=== PATIENT | female | born 1985 | race African-American/Black ===

== ENCOUNTER 2020-04-17 01:31 | Outpatient (CLI) | payer OTHER ==
[~2020-04-17] VITALS: Ht 160 cm; Wt 101.2 kg
[2020-04-17] MEDS ORDERED: PRENTAB9 PO (01:43)
[2020-04-17 01:49] VITALS: BP 121/65
[2020-04-17 02:44] VITALS: BP 108/59
--- NOTE | 2020-04-17 04:37 | HPEPDOC ---
Obstetrical History & Physical General Date of Admission History of Present Illness 04/17/20 0400 am 34 yo CONTRACTIONS Q5-9 MINUTES MODERATE NO LOF OR BLEEDING Chief Complaint: Contractions, term Information Provided By: Patient Age: 34 : 2 Term: 1 Livin Care Care: Good Care Dating Final EDC: Apr 16, 2020 Final EDC by: LMP, 1st trimester (US) LMP: Jul 11, 2019 Weeks + Days: 8 EGA at Admission: 40.1 Past Medical History Past Obstetrical History : Past Obstetrical History: Multigravida Type of Delivery: Spontaneous Vaginal Del. Sex of Infant: Female Complications: No Past Medical History Surgical History: Denies/None Family History Significant Family History: Cancer, Hypertension Social History Marital Status: Family situation: Spouse/partner home Psychosocial History: No pertinent psych hx * Smoker: non-smoker Alcohol: Denies Drugs: denies Abuse Violence Screening Have you been hit/kicked/slapp: No Have you been sexually assault: No Imunizations Tdap status: current Influenza Status: current Allergies Coded Allergies: No Known Allergies (Unverified , 04/17/20) Medications Scheduled No.137/Iron/Folic Acd ( Vitamin Tablet) 1 Each Tablet, 1 TAB PO DAILY Physical Examination Physical Examination GENERAL: Alert and oriented times three. BREAST: . ABDOMEN: Gravid and non-tender to touch. FETUS: Is vertex (VTX) by sterile vaginal examination (SVE), fetus is vertex (VTX) by Jose Miguel. HEART RATE: Regular rate and rhythm. LUNGS: Clear to auscultation (CTA). EXTREMITIES: No edema. No clonus. Deep tendon reflexes (DTRs) + . Vital Signs/I&O Vital Signs Date Time Temp Pulse Resp B/P (MAP) Pulse Ox O2 Delivery O2 Flow Rate FiO2 04/17/20 02:44 77 16 108/59 (75) 04/17/20 01:49 97.3 Pertinent Laboratoy Data Blood Type: O+ HIV: Negative Hepatitis B: Negative Rapid Plasma Reagin: Nonreactive Rubella: Immune Varicella: Immune Chlamydia/Gonorrhea: Negative Group B Streptococcus: Positive Cystic Fibrosis: Positive Anatomy Ultrasound Placenta Location: Anterior Normal Anatomy: Yes Placenta Previa: No Steroid Therapy Steroid Therapy: No Vaginal Examination Dilation: 2cm Effacement: 50% Station: -2 Cervical Consistency: Medium Cervical Position: Posterior Presentation: Cephalic presentation Assessment Heart Rate (FHR): 140 Variability: Moderate Accelerations: Positive Decelerations: None Tocometer Contractions: Yes Frequency: irregular, greater than 9 min/apart Duration: less than 60 seconds Strength: palpated as mild Assessment/Plan Assessment 34year-old (G)2para 1 40weeks Presents to Labor and Delivery WITH CONT RACTIONS Plan Editing Computer Publisher and cons Group B Streptococcus (GBS) POSITIVE Labor and Delivery Counseling REVIEWED AND ASSESSMENT HOURLY NO CHANGE IN DILATATION OR CONTRACTION PATTERN PRECAUTIONS GIVEN DISCHARGED UNDELIVERED BOOKED FOR IOL 04/23/20 Andrew Pham MD Apr 17, 2020 04:31
[2020-04-17] MEDS ORDERED: [UNRECOGNIZED DRUG - OTHER] SUBQ (16:16)
[2020-04-17] MEDS ORDERED: HUMA100I3 SC ×2 (16:16)
[2020-04-17] MEDS ORDERED: [UNRECOGNIZED DRUG - OTHER] PO (16:16)
[2020-04-17] MEDS ORDERED: [UNRECOGNIZED DRUG - OTHER] SC (16:16)
== END 2020-04-17 05:00 | disposition home or self-care (01) ==
LOC: M LDO 01:31
PROVIDERS: ATTEND Obstetrics & Gynecology
DX: O47.1 False labor at or after 37 completed weeks of gestation (principal); Z3A.40 40 weeks gestation of pregnancy
CPT/HCPCS: 59025; 76815; G0378; G0463

== ENCOUNTER 2020-04-17 07:50 | Inpatient (IN) | payer OTHER ==
[~2020-04-17] VITALS: Ht 160 cm; Wt 101.0 kg
[~2020-04-17 07:50] MED LIST: PRENTAB9 PO
[2020-04-17 08:15] VITALS: BP 127/73
[2020-04-17] MEDS ORDERED: OXYTOCIN 30 UNITS IN 0.9% NaCl 500ML IV BAG (J2590) As Ordered ONE (08:44)
[2020-04-17] MEDS ORDERED: PENICILLIN G POTASSIUM IV 5 MU in D5W MINI-BAG PLUS 100 ML IV STA (08:54)
[2020-04-17] MEDS ORDERED: LACTATED RINGER'S 1000 ML IV STA (08:54)
[2020-04-17] MEDS ORDERED: LR 1,000 ML IV SCH (08:54)
--- NOTE | 2020-04-17 09:42 | HPEPDOC ---
Obstetrical History & Physical General Date of Admission Apr 17, 2020 at 08:36 History of Present Illness 34yo , yuri [id number] @40+1, O+, GBS+ urine, scoliosis with spinal christin, pregn natty complicated by maternal obesity, Labor at term Chief Complaint: Contractions, term Information Provided By: Patient Age: 34 : 2 Term: 1 Pre-term: 0 Abortions: 0 Livin Care Care: Good Care Dating Final EDC: Apr 16, 2020 Final EDC for Daily Update: Apr 16, 2020 Final EDC by: LMP LMP: Jul 11, 2019 EGA at Admission: 40 (+1) Antepartum Course Diagnos(e)s maternal pre BMI 34 Height (inches): 63 Pre- weight (lbs.): 193 Admission Weight (lbs.): 225 Change in Weight (lbs.): 32 Past Medical History Past Obstetrical History : Past Obstetrical History: Multigravida Gestation: 42 Type of Delivery: Spontaneous Vaginal Del. Sex of Infant: Female Weight of (grams): 3175 Complications: No ON AWAKE COUNSELOR History: No pertinent history Past Medical History Medical History childhood asthma, maternal obesity, scoliosis, varicose veins Surgical History: [place] teeth, Other (rods for scoliosis) Family History Significant Family History: Cancer (father-prostate, MGM- breast), Diabetes (mother), Hypertension (mother) Social History Marital Status: Family situation: Spouse/partner home Psychosocial History: No pertinent psych hx * Smoker: non-smoker Alcohol: Denies Drugs: denies Abuse Violence Screening Have you been hit/kicked/slapp: No Have you been sexually assault: No Imunizations Tdap status: current Influenza Status: needs Allergies Coded Allergies: No Known Allergies (Unverified , 04/17/20) Medications Scheduled No.137/Iron/Folic Acd ( Vitamin Tablet) 1 Each Tablet, 1 TAB PO DAILY Physical Examination Physical Examination GENERAL: Alert and oriented times three. BREAST: . ABDOMEN: Gravid and non-tender to touch. FETUS: Is vertex (VTX) by sterile vaginal examination (SVE), fetus is vertex (VTX) by Jose Miguel confirmed on TAUS. HEART RATE: Regular rate and rhythm. LUNGS: Clear to auscultation (CTA). EXTREMITIES: No edema. No clonus. Deep tendon reflexes (DTRs) + . Pertinent Laboratoy Data Blood Type: O+ RBC Antibody Screen: Negative HIV: Negative Hepatitis B: Negative Hepatitis C: Negative Rapid Plasma Reagin: Nonreactive Rubella: Immune Varicella: Immune Chlamydia/Gonorrhea: Negative Group B Streptococcus: Positive (by urine) Glucose Tolerance Test: 99 Anatomy Ultrasound Placenta Location: Anterior Normal Anatomy: Yes Placenta Previa: No Vaginal Examination Dilation: 7 cm Effacement: 90% Station: -2 Cervical Consistency: Soft Cervical Position: Middle Presentation: Cephalic presentation Position: Vertex (occiput) Assessment Heart Rate (FHR): 150 Variability: Minimal to moderate Accelerations: None Decelerations: Variable Tocometer Contractions: Yes Frequency: regular (q3 min) Duration: less than 90 seconds Strength: palpated as strong Multi-drug resistant Organism: No history of MDRO Assessment/Plan Assessment [Ty] is a [34]-year-old (G)[2] para (P)[1]-[0]-[0]-[1] at [40]+[1] weeks by [9]-week ultrasound. Presents to Labor and Delivery (L&D) [in active labor at term]. Plan Admit and orient. Damage Adjuster and consent. Diet: [clear in active labor]. Group B Streptococcus (GBS) [positive], initiate GBS prophylaxis. Labs and intravenous (IV) per unit protocol. Continuous efm x2, monitor for change in or maternal status Lactated Ringers (LR): Bolus [1000] mL, then at [125] mL/hr. Encourage maternal movement and position changes, may have epidural if desired Anticipate [normal spontaneous delivery ()]. Evaluate for change as indicated. C-S as appropriate. Labor and Delivery Counseling Pt consent reviewed with expressed understanding MIS TINEO CNM Apr 17, 2020 09:42
[2020-04-17 10:26] LABS: HEMATOCRIT 36.8 % (36.0-47.0); MEAN CORPUSCULAR HEMOGLOBIN 27.2 pg (27.0-33.0); MEAN CORPUSCULAR HGB CONC 32.6 g/dl (32.0-36.5); MEAN CORPUSCULAR VOLUME 83.4 fl (80.0-96.0); PLATELET COUNT, AUTOMATED 349 10^3/uL (150-450); RED BLOOD COUNT 4.41 10^6/uL (4.00-5.40); WHITE BLOOD COUNT 17.2 10^3/uL (4.0-10.0)
[2020-04-17 10:56] VITALS: BP 134/68
--- NOTE | 2020-04-17 11:19 | IPNPDOC ---
Obstetrical Progress Note Date of Service Apr 17, 2020 Subjective Pt c/o increased rectal pressure, contraction pain and urge to push requesting pain medication. Epidural anesthesia requested was unable to be placed due to concerns for positioning of [place]. Objective Vital Signs Date Time Temp Pulse Resp B/P (MAP) Pulse Ox O2 Delivery O2 Flow Rate FiO2 04/17/20 10:56 98.2 93 18 134/68 (90) Assessment Heart Rate (FHR): 150 Variability: Minimal to moderate Accelerations: None Decelerations: Early, Variable Heart Rate Tracing: Category II Tocometer Contractions: Yes Frequency: regular, every 2-5 min. Duration: greater than 90 seconds Sterile Vaginal Examination Dilation: complete Effacement (%): 100% Station: 0 Cervical Consistency: Soft Cervical Position: Middle Postion/Presentation: Cephalic presentation Assessment and Plan Age: 34 : 2 Term: 1 Pre-term: 0 Abortions: 0 Livin EGA at Admission: 40 (+1) Status: Reassuring Group B Streptococcus: Positive Anticipate: Vaginal Delivery Additional Comments Pt offered sterile water injections for back pain, position changes and assistance with movement, evaluation for pudendal, exam to evaluate ability to push. Pt requested cervical exam C/C/0 with BBOW, requesting AROM. AROM completed with exam for meconium stained amniotic fluid. Continue LR @125mL/hr, GBS prophylaxis per protocol, continuous efm x2, encourage maternal position as needed, push with contractions, evaluate for change as indicated, anticipate vaginal delivery. MIS TINEO CNM Apr 17, 2020 11:18
[2020-04-17] MEDS ORDERED: OXYTOCIN DRIP 30 UNITS in IV 1 EA IV SCH (12:20)
[2020-04-17] MEDS ORDERED: ONDANSETRON 4MG/2ML VIAL IV PRN (12:30)
[2020-04-17] MEDS ORDERED: MEASLES,MUMPS,RUBELLA VACCINE INJ (MMR-II) (90707) SC SCH (12:30)
[2020-04-17] MEDS ORDERED: RHOGAM 300 MCG (1500 IU) INJ (J2790) IM SCH (12:30)
[2020-04-17] MEDS ORDERED: METHYLERGONOVINE MALEATE 0.2 MG TAB PO PRN (12:30)
[2020-04-17] MEDS ORDERED: DOCUSATE SODIUM 100 MG CAP PO PRN (12:30)
[2020-04-17] MEDS ORDERED: DIBUCAINE 1% OINTMENT 30GM TOP PRN (12:30)
[2020-04-17] MEDS: ACETAMINOPHEN TAB 650MG DOSE (2X325MG) PO PRN ×2 (12:53→18:28)
--- NOTE | 2020-04-17 13:26 | DNPDOC ---
[facility] Delivery Note Delivery Note DATE OF DELIVERY: [id number] PREDELIVERY DIAGNOSIS: 40-1/7 weeks' gestation and labor. POST DELIVERY DIAGNOSIS: Delivered. PROCEDURE: Spontaneous vaginal delivery. CURTAIN STRETCHER: TUSHAR Tineo ANESTHESIA: none. ESTIMATED BLOOD LOSS: 250 mL. FINDINGS: 6 pound 11 ounce male infant, Score 9/9, no nuchal cord noted after delivery of the head. DELIVERY SUMMARY: Patient is a 34-year-old 2 now para 2-0-0-2 who was admitted to labor and delivery for labor on [id number]. Pt c/o increased pain and pressure at C/C/0 with urge to push and meconium stained amniotic fluid. Brisk progress was made with maternal pushing efforts to with massage of a tight band per maternal request. in OA with restitution to RYAN occurred over an intact perineum. The right anterior shoulder delivered easily followed by the posterior shoulder and corpus. The infant was placed immediately skin to skin on the maternal abdomen where he was dried and stimulated to cry. Pitocin infusion was initiated per protocol. The cord was clamped x 2 after pulsation ceased and cut by the FOB. The placenta delivered spontaneously intact in cabrera presentation with trailing membranes and small bleeding. The fundus firmed immediately at u. The cervix was swept for several small clots. A right vaginal wall laceration was noted. Local lidocaine was placed for comfort and the laceration repaired in the usual fashion with 3-[address]. Mother and baby entered the recovery fashion in stable condition skin to skin. MIS TINEO CNM Apr 17, 2020 13:26
[2020-04-17] MEDS ORDERED: PENICILLIN G POTASSIUM IV 2.5 MU in IV 1 EA IV SCH (13:30)
[2020-04-17] MEDS ORDERED: LIDOCAINE 1% MDV 20ML VIAL SC ONE (13:30)
[2020-04-17 15:40] VITALS: BP 120/63
[2020-04-17] MEDS: IBUPROFEN 800 MG TAB PO PRN (16:00)
[2020-04-17] MEDS ORDERED: [UNRECOGNIZED DRUG - OTHER] SC (16:16)
[2020-04-17] MEDS ORDERED: HUMA100I3 SC ×2 (16:16)
[2020-04-17] MEDS ORDERED: [UNRECOGNIZED DRUG - OTHER] PO (16:16)
[2020-04-17] MEDS ORDERED: [UNRECOGNIZED DRUG - OTHER] SUBQ (16:16)
[2020-04-17 17:35] VITALS: BP 117/56
[2020-04-18] MEDS: IBUPROFEN 800 MG TAB PO PRN ×3 (03:38→22:58)
[2020-04-18 06:01] VITALS: BP 116/60
[2020-04-18] MEDS: PRENATAL VITAMINS CHEWABLE TABLET PO SCH (08:54)
--- NOTE | 2020-04-18 09:02 | IPNPDOC ---
Progress Note Date of Service: Apr 18, 2020 Day#: 1 Progress Note SUBJECT: Ty is a 34yo s/p doing well day # 1. She has been ambulating, voiding spontaneously without issue and tolerating regular diet. Breast feeding without issue. Reports lochia is decreasing. Patient is ambulating well. Pain controlled on current pain meds. OBJECTIVE: VITAL SIGNS: Within normal limits, afebrile. Alert and oriented times three. RESP: no exaggerated respiratory effort, no cough CARDS: well-perfused Abdomen: Fundus firm at U-2. Soft, appropriately tender to palpation : mild edema, scant lochia Ext: no edema, no calf tenderness ASSESSMENT: Ty is a 34yo s/p doing well day # 1. Vitals within normal limits, afebrile, hemodynamically stable with no evidence of infection. PLAN: 1. Discharge planning to home tomorrow 2. Continue current pain mgmt - patient counseled discharge meds are ready for pick-up at [facility] 3. Encourage breast feeding with support 4. Encourage regular diet as tolerated. 5. Encourage ambulation OOB as tolerated. 6. Patient to f/u in 6 weeks for pp visit VS, I&O, 24H, Fishbone Vital Signs/I&O Vital Signs Date Time Temp Pulse Resp B/P (MAP) Pulse Ox O2 Delivery O2 Flow Rate FiO2 04/18/20 06:01 98.0 70 18 116/60 (78) 04/17/20 15:40 98 I&O- Last 24 Hours up to 6 AM 04/18/20 06:00 Intake Total 1900 ml Output Total 850 ml Balance 1050 ml Laboratory Data 24H LABS Laboratory Tests 2 04/17/20 09:38: Serology Scanned Report Hepatitis B Testing 04/17/20 09:47: Nucleated Red Blood Cells % (auto) 0.0, Syphilis Serology NONREACTIVE CBC/BMP Laboratory Tests 04/17/20 09:47 KURTIS LANDIN DO Apr 18, 2020 09:02
--- NOTE | 2020-04-18 10:13 | IPNPDOC ---
Text Note Date of Service The patient was seen on 04/18/20. NOTE This patient has requested the circumcision of their male infant. After discussing the risks and benefits of circumcision, the medical and nonmedical indications, the penile block, and aftercare, expressed understanding of penile block aftercare and bleeding, and signed a consent form. All questions were answered. 20 minute discussion. We await clearance by the clinical evaluator. VS,Fishbone, I+O VS, Fishbone, I+O Vital Signs Date Time Temp Pulse Resp B/P (MAP) Pulse Ox O2 Delivery O2 Flow Rate FiO2 04/18/20 06:01 98.0 70 18 116/60 (78) 04/17/20 15:40 98 l I&O- Last 24 Hours up to 6 AM 04/18/20 06:00 Intake Total 1900 ml Output Total 850 ml Balance 1050 ml Andrew Pham MD Apr 18, 2020 10:13
[2020-04-18 18:05] VITALS: BP 103/57
[2020-04-18 22:40] VITALS: BP 120/58
[2020-04-19 06:00] VITALS: BP 103/58
[2020-04-19] MEDS ORDERED: IBUP80TA PO (06:58)
[2020-04-19] MEDS ORDERED: DIBU10OI TOP (06:58)
[2020-04-19] MEDS ORDERED: DOCU100C16 PO (06:58)
[2020-04-19] MEDS: PRENATAL VITAMINS CHEWABLE TABLET PO SCH (08:40)
[2020-04-19] MEDS ORDERED: INFLUENZA QUADRIVALENT PF VACCINE 0.5ML SYRINGE IM ONE (09:00)
--- NOTE | 2020-04-28 11:07 | DS ---
DATE OF ADMISSION: 04/17/2020 DATE OF DISCHARGE: 04/19/2020 A 34-year-old 2, now para 2, admitted at 40 weeks with contractions. Had a spontaneous vaginal delivery, male infant, 6 pounds 11 ounces, scores of 9 and 9 at one and five minutes, respectively. She had a small little tear, right vaginal wall laceration. A little local was used in order to repair it. On her second day we discussed phlebitis, cystitis, mastitis, endometritis, and cellulitis, diet, exercise, pain management, perineal, breast, and wound care. On discharge, her blood pressure was 103/57, respirations are 18, pulse 71, temperature 98.7. Her admitting hemoglobin 12.0, hematocrit 36.8, and platelets 349. Patient has her medications dispensed at [facility]. She is to have a 6-week checkup at [facility]. The rest of the examination is unremarkable. Normocephalic, atraumatic. Neck: Full range of motion. Pupils equal and reactive to light. Distal pulses are symmetric. No evidence of deep venous thrombosis (DVT), pulmonary embolus (PE), or superficial phlebitis. Chest is clear bilaterally to bases. No wheezes or rhonchi. No costovertebral angle (CVA) tenderness. She has no urgency or frequency. No nausea, vomiting, diarrhea, or constipation. In summary, we have a term gestation who delivered a live- male infant. Plans are to picker operator her medications at [facility]. A 6-week check at [facility]. is planning on having a vasectomy. YURIDIA
== END 2020-04-19 13:00 | disposition home or self-care (01) | DRG 807 ==
LOC: M LDO 07:50 → M LDI 08:36 → M OBS 15:25
PROVIDERS: ADMIT Registered Nurse; ATTEND Registered Nurse
PROC: 10E0XZZ Delivery of Products of Conception, External Approach (ICD-10-PCS; principal; 2020-04-17)
PROC: 0HQ9XZZ Repair Perineum Skin, External Approach (ICD-10-PCS; 2020-04-17)
PROC: 10907ZC Drainage of Amniotic Fluid, Therapeutic from Products of Conception, Via Natural or Artificial Opening (ICD-10-PCS; 2020-04-17)
DX: O48.0 Post-term pregnancy (principal); Z37.0 Single live birth; Z3A.40 40 weeks gestation of pregnancy; O99.824 Streptococcus B carrier state complicating childbirth; O99.214 Obesity complicating childbirth; E66.9 Obesity, unspecified; O77.0 Labor and delivery complicated by meconium in amniotic fluid; O70.0 First degree perineal laceration during delivery; Z96.89 Presence of other specified functional implants